=== PATIENT | male | born 2000 | race Two or more races ===

== ENCOUNTER 2025-08-18 11:55 | Outpatient (AMB) | payer OTHER, SELFPAY ==
[2025-08-18 12:21] VITALS: BP 108/76; PULSE 71; TEMP 36.8; O2SAT 98; BMI 25.0
--- NOTE | 2025-08-18 12:21 | MHC.OFFWIV ---
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 He missed work yesterday and today He states feeling better Last episode of emesis was early Sunday He is able to keep down food and liquid He denies fever or chills Has some abdominal pain, rates it as a 2/10 + watery diarrhea, no blood or black Pt tried zofran for symptoms, helped with nausea Denies URI symptoms like congestion, cough or ST No eating out of travel Work recommended getting note for last 2 days missed. Works again tomorrow Review of Systems Const Denies chills, Denies fever(s) and Reports poor appetite ENT Denies nasal congestion and Denies sore throat Card Denies chest pain and Denies dyspnea Resp Denies cough and Denies dyspnea GI Reports abdominal pain, Reports diarrhea, Reports nausea and Reports vomiting Physical Exam Exam Exam: General: Non-toxic, NAD. Speaking full sentences. Skin: Warm dry throughout HENT: Airway patent. Uvula midline. No pharyngeal erythema or edema. No DIRECTOR OF CORPORATE STRATEGY. Mucosa is moist Bilateral canals clear. TM non-erythematous, non-bulging. No TM perforation or hemotympanum noted. Respiratory: CTA bilaterally. No wheezes, rales or rhonchi Cardiac: RRR. No murmur Abdominal: BS present. Non-tender throughout. No palpable masses. No abdominal distention Neurology: Alert. No aphasia or facial droop. Gait without abnormality Psych: Good mood and affect Vital Signs: Last Vital Signs Temp 98.2 F 08/18/25 12:21 Pulse 71 08/18/25 12:21 BP 108/76 08/18/25 12:21 Pulse Ox 98 08/18/25 12:21 Oxygen Delivery Method Room Air 08/18/25 12:21 BMI result Body Mass Index 25.0 Assessment & Plan Assessment & Plan (1) Gastroenteritis: Code(s): K52.9 - Noninfective gastroenteritis and colitis, unspecified Plan: Patient seen and evaluated. No acute abdomen on exam Work note given Discussed bland diet and stay hydrated Patient gave verbal understanding and had no additional questions or concerns at time of discharge All questions answered Coding Level of Care Code New Pt Level 3 (64766) Diagnoses Gastroenteritis K52.9
--- OUTSIDE RECORDS SUMMARY | 2025-08-18 15:58 | XMS_ITS | Clinical Summary ---
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 Assessment & Plan (06/29/2020 2:21 PM EST): Discussed reasons for influenza vaccination to include prevention of this potential serious infection. Resolved Problems Problem Noted Date Diagnosed Date Resolved Date Pediatric body mass index (B WY) of greater than or equal to 95th percentile for age 0310/24/2017 06/29/2020 Overview (06/28/2020): Chol 176 in 11/02 Immunizations Immunization Administration Dates Next Due DTaP 11/01/2006, 3,04/09/2002, 002,2001 HPV Vaccine 9 Valent 10/24/2017,02/07/2017 Hep A, ped/adol 10/24/2017,02/07/2017 Hep B, ped/adol 10/10/2002,02/03/2002,2001 Hib (PRP-T) 04/24/2003, 3,02/03/2002, 002 IPV 11/01/2006, 3,02/03/2002, 002 MMR 01/23/2003 MMRV 11/01/2006 Meningococcal Conj (Menactra) MCV4P 10/24/2017,0 10/25/2012 Pneumococcal Conjugate 04/24/2003,2001,02/03/2002, 002 Tdap 10/25/2012 Varicella 01/23/2003 Family History Medical History Relation Name Comments Diabetes type II Father Valvular heart disease Father Diabetes type I Maternal Grandfather Diabetes type II Maternal Grandmother No Known Problems Mother Diabetes type II Paternal Grandfather Diabetes type II Paternal Grandmother Relation Name Status Comments Father Alive age: 49 diagnos ed with DMII WO CMP NT [facility] Father's Brother Alive Father's Sister Alive Maternal Grandfather type I , DM Maternal Grandmother diagnos ed with DMII WO CMP NT [facility] Mother Alive healthy age: 44 Other Alive Siblings: healt hy Paternal Grandfather Alive diagnos ed with DMII WO CMP NT [facility] Paternal Grandmother Alive diagnos ed with DMII WO CMP NT [facility] Social History Tobacco Use Types Packs/Day Years Used Date Smoking Tobacco: Never Assessed Hunger/Food Answer Date Recorded In the last 12 months, did y ou or your family ever eat less than you felt you should because there wasn't enough money for food? No 07/06/2021 Stable Housing Answer Date Recorded Are you worried that in the next 2 months you may not have stable housing? No 07/06/2021 Transportation Concerns Answer Date Rec orded In the last 12 months, have you or your family ever had to go without healthcare because you didn't have a way to get there? No 07/06/2021 Hazards in Home Answer Date Recorded Think about the place you li ve. Do you have problems with any of the following? Pests (mice or roaches), mold, no/not working smoke detectors, water leaks, no window guards. No 2020 Financing Utilities Answer Date Recorde d In the last 12 months, has t he electric, gas, oil, or water company threatened to shut off your services in your home? No 07/06/2021 Safety at Home Answer Date Recorded Are you or your family worried about feeling saf e in your home? No 07/06/2021 Outside Support Answer Date Recorded Do you feel that you need mo re support from other people or programs to help you care for yourself or your family? No 07/06/2021 Understanding Health Concerns Answer Da te Recorded Do you need help understandi ng your or your child's healthcare needs (diagnosis, medications, plan, etc.)? No 07/06/2021 Financing Health Concerns Answer Date R ecorded In the last 12 months, was t here a time when your child needed to see a doctor or get medications or supplies but could not because of cost? No 07/06/2021 Missing School or Work Answer Date Lenny rded Did you or your child miss s chool or work because of a health problem that could have been avoided? No 07/06/2021 Sex and Gender Information Value Date Recorded Sex Assigned at Not on file Legal Sex Male 6:08 PM EDT Gender Identity Not on file Sexual Orientation Not on file Last Filed Vital Signs Vital Sign Reading Time Taken Comments Blood Pressure 122/70 07/06/2021 3:07 PM EST Pulse 102 07/24/2011 12:00 AM EST Temperature 36.8 C (98.3 F) 07/05/2018 11:08 AM EST Respiratory Rate - - Oxygen Saturation 97% 07/24/2011 12:00 AM EST Inhaled Oxygen Concentration - - Weight 68.9 kg (152 lb) 07/06/2021 3:07 PM EST Height 165.1 cm (5' 5 ) 07/06/2021 3:07 PM EST Body Mass Index 25.29 07/06/2021 3:07 PM EST Plan of Treatment Health Maintenance Due Date Last Done Comments Men B Vaccine (1 of 2 - Standard) 2017 HPV Vaccines (3 - Male 3-dos e series) 01/16/2018 10/24/2017, 02/07/2017 DTaP,Tdap,and Td Vaccines (7 - Td or Tdap) 10/25/2022 10/25/2012, 11/01/2006, 07/31/2003, Additional history exists Influenza Vaccines (#1) 2025 COVID-19 Vaccine (3 - 2024-2 6 season) 2025 10/27/2021, 05/13/2021 Hepatitis B Vaccines Completed 10/10/2002, 02/03/2002, 2001 HIB Vaccines Completed 04/24/2003, 09/21, 02/03/2002, Additional history exists Pneumococcal Vaccine Completed 04/24/2003, 04/09/2002, 02/03/2002, Additional history exists IPV Vaccines Completed 11/01/2006, 07/20, 02/03/2002, Additional history exists MMR Vaccines Completed 11/01/2006, 01/23/2003 Varicella Vaccines Completed 11/01/2006, 01/23/2003 Hepatitis A Vaccines Completed 10/24/2017, 02/08/20 17 Meningococcal Vaccine Completed 10/24/2017, 013 Insurance PUBLIC DIRECT [facility] DIRECT
--- OUTSIDE RECORDS SUMMARY | 2025-08-18 15:58 | XMS_ITS | Encounter Summary ---
Author Organization [facility] Address [address] [place] [phone] Phone Care Team Providers Care Tobacco Stripper Hand Name Role Phone David Baez MD Primary Care Provider [phone] Encounter Details Date Type Department Care Team (Late st Contact Info) Description 01/06/2018 Conversion Encounter [facility] [address] [address] Social History Tobacco Use Types Packs/Day Years Used Date Smoking Tobacco: Never Assessed Sex and Gender Information Value Date Recorded Sex Assigned at Not on file Legal Sex Male 6:08 PM EDT Gender Identity Not on file Sexual Orientation Not on file documented as of this encounter Plan of Treatment Not on file documented as of this encounter Visit Diagnoses Not on filedocumented in this encounter Care Teams Tobacco Stripper Hand Relationship Specialty Start Date End Date David Baez MD [address] [place] [address] PCP - General Pediatrics 06/29/20 06/03/24 documented as of this encounter
== END 2025-08-18 12:33 | disposition home or self-care (01) ==
PROVIDERS: PCP Pediatrics; Visit Provider Physician Assistant
DX: K52.9 Noninfective gastroenteritis and colitis, unspecified (principal)